=== PATIENT | female | born 1940 | race Hispanic/Latino ===

== ENCOUNTER 2021-09-10 11:52 | Emergency (ER) | payer OTHER ==
[~2021-09-10] VITALS: Ht 160 cm; Wt 73.5 kg
[2021-09-10] MEDS ORDERED: ONDANSETRON 4MG INJ IVP ONE (12:30)
[2021-09-10] MEDS ORDERED: KETOROLAC 15MG/ML VIAL (15MG/ML) IV ONE (12:30)
[2021-09-10] MEDS ORDERED: 0.9%NACL 1000ML 1,000 ML IV ONE (12:30)
[2021-09-10 12:43] LABS: BASOPHILS % (AUTO) 0.2 % (0.0-5.0); EOSINOPHILS % (AUTO) 0.4 % (0.0-8.0); HEMATOCRIT 39.4 % (36-48); LYMPHOCYTES % (AUTO) 2.4 % (21.0-51.0); MEAN CORPUSCULAR HEMOGLOBIN 29.7 pg (27.0-33.0); MEAN CORPUSCULAR HGB CONC 32.2 g/dL (32.0-36.0); MEAN CORPUSCULAR VOLUME 92.1 fL (79-99); MONOCYTES % (AUTO) 2.6 % (3.0-13.0); NEUTROPHILS % (AUTO) 93.9 % (40.0-77.0); PLATELET COUNT (AUTO) 294 K/uL (130-400); RED BLOOD CELL COUNT(AUTO) 4.28 MIL/uL (4.00-5.50); WHITE BLOOD COUNT (AUTO) 20.1 K/uL (4.8-10.8)
[2021-09-10 12:59] LABS: CREATININE 1.1 mg/dL (0.5-1.5); POTASSIUM 4.9 mmol/L (3.5-5.1)
[2021-09-10 13:04] LABS: ALBUMIN 3.6 g/dL (3.5-5.0); TOTAL PROTEIN, SERUM 7.4 g/dL (6.0-8.3)
[2021-09-10] MEDS ORDERED: IOHEXOL 350 MG/ML 100ML INFUS..BTL IV ONE (13:26)
[2021-09-10 13:50] LABS: APPEARANCE,URINE Clear (CLEAR); BILIRUBIN,URINE Negative (NEGATIVE); COLOR,URINE Yellow (YELLOW); GLUCOSE, URINE (UA) Negative (NEGATIVE); KETONES,URINE Negative (NEGATIVE); LEUKOCYTE ESTERASE ,URINE Trace (NEGATIVE); NITRATE,URINE Negative (NEGATIVE); OCCULT BLOOD,URINE Negative (NEGATIVE); PH,URINE 5.5 (5.0-8.0); PROTEIN,URINE Trace mg/dL (NEGATIVE); UROBILINOGEN,URINE 0.2 mg/dL (0.2-1.0)
[2021-09-10 14:01] LABS: BACTERIA,URINE None Seen /HPF (None Seen); RBC,URINE 0-1 /HPF (0-1); SQUAMOUS EPITHELIAL CELL,UR 0-2 /HPF (0-2); WBC,URINE 0-1 /HPF (0-1)
[2021-09-10] MEDS ORDERED: ONDA4TAB10 PO (16:23)
[2021-09-10] MEDS ORDERED: IBUP-2070 PO (16:23)
[2021-09-10] MEDS ORDERED: CEPH500B PO (16:23)
[2021-09-10 16:45] VITALS: BP 102/78
== END 2021-09-10 16:51 | disposition home or self-care (01) ==
LOC: EDH 11:52
DX: N39.0 Urinary tract infection, site not specified (principal); Z20.822 Contact with and (suspected) exposure to COVID-19; E11.9 Type 2 diabetes mellitus without complications; E78.00 Pure hypercholesterolemia, unspecified; I10 Essential (primary) hypertension; Z98.890 Other specified postprocedural states
CPT/HCPCS: 99285; 74177; 96374; 76705; 71045; 87635; 96375; 80053; 83690; 85025; 87804 ×2; 81001; 36415; C9803; J7030; J2405; J1885; Q9967

== ENCOUNTER 2024-04-07 06:49 | Emergency (ER) | payer OTHER ==
[~2024-04-07] VITALS: Ht 160 cm; Wt 71.7 kg
[~2024-04-07 06:49] MED LIST: CEPH500B PO; IBUP-2070 PO; ONDA-243 PO
--- NOTE | 2024-04-07 08:10 | ERN ---
ED Note History of Present Illness Stated Complaint: ABDOMINAL PAIN Chief Complaint: Abdominal Pain Time Seen by MD: 07:59 Dictation: The patient is a 83-year-old female patient with a medical history that includes hypertension, hypercholesterolemia, diverticulosis, chronic constipation, and type 2 diabetes mellitus presented to the emergency department today, reporting a primary complaint of sharp abdominal pain on the left side that has intensified since Thursday. The patient characterizes the pain as sharp and shooting, rated at 8 out of 10, with radiation to the back and no identifiable aggravating or alleviating factors. Two days prior, she consulted her primary care physician, who diagnosed her with a urinary tract infection and prescribed nitrofurantoin. However, her symptoms did not improve, leading her to visit urgent care yesterday, where she was advised that she might have pancreatitis and was discharged with pain relief medications. Despite this, her condition did not improve, prompting her visit to the emergency department. The patient has a history of diverticulitis diagnosed several years ago. She denies experiencing any chest pain, diaphoresis, shortness of breath, nausea, vomiting, urinary frequency, or urgency. Her last bowel movement was yesterday. Allergies: Coded Allergies: No Known Drug Allergies (Unverified Allergy, Unknown, 09/10/21) Home Meds Active Scripts Sennosides/Docusate Sodium (Sennosides-Docusate Sodium Tab) 8.6 Mg-50 Mg Tablet, 2 TAB PO DAILY for 7 Days, #14 TAB 0 Refills Prov:SENIA SOMERS MD 04/07/24 Cephalexin Monohydrate (Keflex) 500 Mg Cap, 500 MG PO BID for 5 Days, #10 CAP Prov:MARLENA REESE MD 09/10/21 Ondansetron (Ondansetron Odt) 4 Mg Tab.rapdis, 4 MG PO TID for nausea, #15 TAB Prov:MARLENA REESE MD 09/10/21 Ibuprofen (Ibuprofen) 600 Mg Tablet, 600 MG PO Q6H PRN for PAIN, #30 TAB Prov:MARLENA REESE MD 09/10/21 Past Medical History Past Medical History: Diabetes-Type II, Diverticulitis, High Cholesterol, Hypertension Additional Past Medical Hx: PVD, BOWEL OBSTRUCTION Surgical History: Hysterectomy Surgical History Other: HYSTERECTOMY 1990 Social History: Negative, Lives with family Review of System Dictation REVIEW OF SYSTEMS CONSTITUTIONAL: Denies fevers, chills, or night sweats. No unintentional weight loss reported. NEUROLOGICAL: Denies headache, amaurosis fugax, motor weakness, sensory deficit, vertigo/spinning sensation, gait abnormalities, or tremors. ENT: No hearing loss, otalgia, otorrhea, rhinitis, rhinorrhea, hoarseness, or sore throat. CARDIOVASCULAR: Denies any exertional angina, dyspnea on exertion, orthopnea, paroxysmal nocturnal dyspnea, palpitations, life-threatening arrhythmias, claudication. PULMONARY: Denies any shortness of breath, cough, phlegm/sputum, hemoptysis, pleuritic chest pain. SLEEP: Denies morning headaches, daytime somnolence or napping. Denies difficulty falling asleep, staying asleep, waking from sleep. Denies knowledge of snoring. GASTROINTESTINAL: c/o sharp shooting LUQ pain radiating to back, Denies any type of dysphagia to either liquids or solids. Denies pyrosis, early satiety, diarrhea, constipation, or changes in stool consistency or caliber. Denies coffee-ground emesis, hematemesis, hematochezia, or melanotic stools. GENITOURINARY: Denies frequency, urgency, nocturia, hematuria or incontinence (Storage/Irritative symptoms.) Low urinary stream, straining to void, urinary intermittency or hesitancy, splitting of the voiding stream, terminal dribbling. ENDOCRINOLOGIC: Denies polyuria, polydipsia, polyphagia or heat/cold intolerances. HEMATOLOGIC: Denies thrombophilia/previous clots, or coagulopathy/bleeding di sorders. ONCOLOGIC: Denies personal history of malignancy. DERMATOLOGIC: Denies rashes or pruritus. PSYCHIATRIC: Denies any suicidal or homicidal ideation. Denies hallucinations. Initial Vital Sign VS Vital Signs Date Time Temp Pulse Resp B/P (MAP) Pulse Ox O2 Delivery O2 Flow Rate FiO2 04/07/24 06:50 98.2 92 18 198/79 100 Room Air 0 04/07/24 08:57 21 Physical Exam Dictation PHYSICAL EXAM GENERAL APPEARANCE: The patient is awake, alert, and oriented, in no acute cardiopulmonary distress. NEUROLOGICAL: Cranial nerves II-XII grossly intact. Motor is 5/5 in bilateral upper and lower extremities proximal to distal. No sensory deficits. HEENT: Face is symmetric. Pupils are equal and reactive. Extraocular movements are intact. NECK: Supple. No JVD. No thyromegaly. No submental, submandibular, pre- /postauricular, occipital or supraclavicular lymphadenopathy. CHEST: Normal chest expansion. No Telemetry. LUNGS: Absence of any rales, rhonchi or any wheezing. CARDIOVASCULAR: Regular. S1 and S2 normal. No appreciable rubs, murmurs or gallops. ABDOMEN: Tenderness present on deep palpation on LUQ, Soft, and nondistended. There is no rebound, voluntary guarding, or rigidity. : Deferred. No Ye. EXTREMITIES: Non-edematous and not cyanotic. No clubbing. Good capillary refill. SKIN: No skin breakdown. Results (Laboratory/Radiology) Laboratory/Radiology Laboratory Tests Test 04/07/24 08:18 04/07/24 08:30 Urine Color COLORLESS (YELLOW) Urine Appearance CLEAR (CLEAR) Urine pH 7.0 (5.0-8.0) Urine Specific [place] 1.005 (1.001-1.031) Urine Protein NEGATIVE mg/dL (NEGATIVE) Urine Glucose (UA) NEGATIVE mg/dL (NEGATIVE) Urine Ketones NEGATIVE mg/dL (NEGATIVE) Urine Occult Blood NEGATIVE (NEGATIVE) Urine Nitrate NEGATIVE (NEGATIVE) Urine Bilirubin NEGATIVE mg/dL (NEGATIVE) Urine Urobilinogen 0.2 mg/dL (0.2-1.0) Urine Leukocyte Esterase NEGATIVE [place]/uL White Blood Count 7.7 K/uL (4.8-10.8) Red Blood Count 4.14 MIL/uL (4.00-5.50) Hemoglobin 12.3 g/dL (12.0-16.0) Hematocrit 38.3 % (36-48) Mean Corpuscular Volume 92.5 fL (79-99) Mean Corpuscular Hemoglobin 29.7 pg (27.0-33.0) Mean Corpuscular Hemoglobin Concent 32.1 g/dL (32.0-36.0) Red Cell Distribution Width 13.5 % (11.0-15.5) Platelet Count 194 K/uL (130-400) Mean Platelet Volume 10.0 fL (7.5-10.5) Immature Granulocyte % (Auto) 0.4 % (0-1) Neutrophils (%) (Auto) 68.5 % (40.0-77.0) Lymphocytes (%) (Auto) 18.9 % (21.0-51.0) L Monocytes (%) (Auto) 9.9 % (3.0-13.0) Eosinophils (%) (Auto) 1.8 % (0.0-8.0) Basophils (%) (Auto) 0.5 % (0.0-5.0) Neutrophils # (Auto) 5.3 K/uL (1.8-7.7) Lymphocytes # (Auto) 1.5 K/uL (1.0-4.8) Monocytes # (Auto) 0.8 K/uL (0.1-1.0) Eosinophils # (Auto) 0.14 K/uL (0.00-0.70) Basophils # (Auto) 0.04 K/uL (0.00-0.20) Absolute Immature Granulocyte (auto 0.03 K/uL (0-1) Nucleated Red Blood Cells 0.0 % (0.0-0.19) Sodium Level 144 mmol/L (136-145) Potassium Level 4.6 mmol/L (3.5-5.1) Chloride Level 110 mmol/L (101-111) Carbon Dioxide Level 27 mmol/L (21-32) Blood Urea Nitrogen 11 mg/dL (7-18) Creatinine 0.9 mg/dL (0.5-1.0) Glomerular Filtration Rate Calc 64 mL/min (>90) Random Glucose 122 mg/dL (70-105) H Total Calcium 9.3 mg/dL (8.5-10.1) Total Bilirubin 0.3 mg/dL (0.2-1.0) Direct Bilirubin 0.1 mg/dL (0.0-0.3) Aspartate Amino Transf (AST/SGOT) 17 U/L (10-37) Alanine Aminotransferase (ALT/SGPT) 29 U/L (12-78) Alkaline Phosphatase 73 U/L (50-136) Total Protein 7.3 g/dL (6.0-8.3) Albumin 3.6 g/dL (3.5-5.0) Lipase 70 U/L (16-77) CT Scan Comment: [place] [id number] [address] IMAGING REPORT Signed PATIENT: JAYSON BROOKS MR#: [id number] : 1940 SEX: F AGE: 83 LOCATION: [facility] ORDER 0 STATUS: REG ER REPORT#: [id number] SERVICE 8 REASON: LUQ pain, R/o diverticulitis, Pancreatitis ORDERING PHYSICIAN: SENIA SOMERS MD PROCEDURE: ABD PEL WO - CT ABDOMEN/PELVIS W/O CONTRAST CT ABDOMEN/PELVIS W/O CONTRAST HISTORY: Pain COMPARISON: None TECHNIQUE: Multiple sequential axial images of the abdomen and pelvis were obtained from the dome of the diaphragm through symphysis pubis. Patient was not given contrast through intravenous route. Oral contrast was not given. FINDINGS: No pleural effusion is seen bilaterally. There is no evidence of parenchymal disease or pulmonary nodule of the visualized lower lungs. Degenerative changes of the thoracolumbar spine are present. The heart is not enlarged. Liver measures 14 cm. Gallbladder is markedly distended with gallstone. There is diverticulosis. The liver, spleen, adrenal glands and pancreas are unremarkable. There is no evidence of hydronephrosis bilaterally. No evidence of renal stone is seen. Fecal material is seen in the colon. There are normal size retroperitoneal and mesenteric lymph nodes. No ascites is seen. Atherosclerotic changes are present. Appendix is not well seen. Pelvic sidewalls are symmetric bilaterally. Bladder is poorly distended. IMPRESSION: 1. Gallbladder is markedly distended with gallstone. There is diverticulosis. CT was performed with one or more following dose reduction techniques: automated exposure control, adjustment of the mA and kv according to patient's size, or use of a iterative reconstruction technique. DICTATED BY: MARCO ANTONIO CARDONA MD DATE: 04/07/2457 ELECTRONICALLY SIGNED BY: MARCO ANTONIO CARDONA MD DATE: 04/07/24900 ED Course ED Course Orders Procedure Category Date Status Time Cbc With Differential LAB 04/07/24 Complete 06:54 Urinalysis Profile LAB 04/07/24 Complete 06:54 Morphine 2mg Syg PHA 04/07/24 Complete (Morphine 2mg Syg) 07:00 Ondansetron 4mg Inj PHA 04/07/24 Complete (Zofran 4mg Inj) 07:00 Lipase LAB 04/07/24 Complete 06:54 Basic Metabolic Panel LAB 04/07/24 Complete 06:54 Ct Abdomen/Pelvis W/O CT 04/07/24 Resulted Contrast 07:59 Vital Signs Per CPOE 04/07/24 Transmitted Routine 08:51 Hepatic Function Panel LAB 04/07/24 Complete 09:03 Pantoprazole 40mg Inj PHA 04/07/24 Complete (Protonix 40mg Inj 09:30 Lidocaine Hcl 2% PHA 04/07/24 Complete Viscous (Lidocaine Hcl 09:30 Mag/Alum/Simeth 30ml PHA 04/07/24 Complete (Maalox Plus 30ml) 09:30 Dicyclomine Hcl PHA 04/07/24 Complete (Bentyl 10mg/5ml 09:30 Current Medications Medications (Trade) Dose Ordered Sig/Brandy Route PRN Reason Start Time Stop Time Status Last Admin Dose Admin Al Hydroxide/Mg Hydroxide (MAALox PLUS 30ML) 30 ml ONCE ONCE PO 04/07/24 09:30 04/07/24 09:31 DC 04/07/24 09:38 Dicyclomine HCl (Bentyl 10mg/5ml Syrup) 10 mg ONCE ONCE PO 04/07/24 09:30 04/07/24 09:31 DC 04/07/24 09:38 Lidocaine HCl (Lidocaine HCl 2% Viscous) 10 ml ONCE ONCE PO 04/07/24 09:30 04/07/24 09:31 DC 04/07/24 09:38 Morphine Sulfate (morPHINE 2MG SYG) 2 mg ONCE ONCE IVP 04/07/24 07:00 04/07/24 07:01 DC 04/07/24 08:54 Ondansetron HCl (zoFRAN 4MG INJ) 4 mg ONCE ONCE IVP 04/07/24 07:00 04/07/24 07:01 DC 04/07/24 08:44 Pantoprazole Sodium (PROTonix 40MG INJ) 40 mg ONCE ONCE IVP 04/07/24 09:30 04/07/24 09:31 DC 04/07/24 09:37 Vital Signs Date Time Temp Pulse Resp B/P (MAP) Pulse Ox O2 Delivery O2 Flow Rate FiO2 04/07/24 10:39 97.5 67 18 159/72 100 Room Air* 0 21 04/07/24 08:57 98.1 64 16 152/84 98 Room Air* 0 21 04/07/24 06:50 98.2 92 18 198/79 100 Room Air 0 08:13 The patient was assessed in Emergency Department triage room 2. She is a Welsh speaker, and her daughter assisted with the translation. The patient reports experiencing pain but does not appear to be in cardiopulmonary distress. She is exhibiting hypertension, likely due to pain, with a reading of 198/79, but is otherwise hemodynamically stable. We will proceed with ordering basic laboratory tests, including CBC, BMP, amylase, and urinalysis. Additionally, a CT scan of the abdomen and pelvis without contrast will be requested to exclude nephrolithiasis, diverticulitis, pyelonephritis, and pancreatitis. Once the results of the investigations and laboratory tests are available, we will determine whether the patient requires any emergency interventions or inpatient admission. Continuous monitoring of the patient will be conducted. 10:42 laboratory results did not show any abnormalities. CT scan abdomen and pelvis showed gallbladder is markedly distended with gallstones, and diverticulosis. At this time, we think the patient does not require any emergency treatment or inpatient hospitalization. The patient's symptoms are likely secondary to constipation, diverticulosis. We will prescribe laxatives to relieve with the constipation. Lab results and investigations were discussed with the patient and her daughter. The patient is stable for discharge. Medical Decision Making [facility] Differential diagnosis: Diverticulosis of colon, Constipation, Left upper quadrant abdominal pain Rationale: Tests considered and ordered secondary to shared decision making include: Previous outside records reviewed: Old ER visits. Risk of complication and/or morbidity or mortality of patient management: None Medications-Per medication reconciliation Need for hospitalization: Patient does not meet criteria for hospitalization. Need for emergency major/minor surgery: No There are no social concerns with this patient. Prescription drug management Prescriptions will include symptomatic care Patient's prior external medical records from other ER visits were reviewed by me as indicated. Prior testing and results from previous visits were reviewed. Prior tests were taken into account with medical decision making and resource utilization, independent historian/historians were used to obtain complete medical history. I independently interpreted the test that were performed, results were reviewed by me and considered findings on radiology if ordered. DX & DISP Disposition: Discharge Departure Impression: Primary Impression: Diverticulosis of colon Additional Impressions: Left upper quadrant abdominal pain, Constipation Critical Time: 30 minutes Condition: Stable Scripts Sennosides/Docusate Sodium (Sennosides-Docusate Sodium Tab) 8.6 Mg-50 Mg Tablet 2 TAB PO DAILY for 7 Days, #14 TAB 0 Refills Prov: SENAI SOMERS MD 04/07/24 Additional Instructions: Start taking sennosides/Docusate sodium 8.6-50 mg 2 tablets daily as needed for constipation. Gradually increase the amount of high-fiber foods in your diet. Choose more whole grain breads, cereals and rice. Select more raw fruits and vegetables -- eat the peel, if appropriate. Read food labels and look for the "dietary fiber" content of foods. Drink clear fluids like water, tea, broth, Gatorade, or Jell-O Avoid fried or spicy foods, or foods that are high in fat Visit the nearest emergency department or call 911 should the symptoms does not improve or gets worse. Referrals: YULISSA BROOKS MD (PCP) I have reviewed, & agreed with my scribe's, documentation. I have reviewed the case, and I agree with, Diagnosis and Plan I have examined patient, & reviewed all documents, & agreed W/ the Diagnosis, and Plan SENIA SOMERS MD Apr 07, 2024 08:10
[2024-04-07 08:41] LABS: BASOPHILS # (AUTO) 0.04 K/uL (0.00-0.20); BASOPHILS % (AUTO) 0.5 % (0.0-5.0); EOSINOPHILS # (AUTO) 0.14 K/uL (0.00-0.70); EOSINOPHILS % (AUTO) 1.8 % (0.0-8.0); HEMATOCRIT 38.3 % (36-48); IMMATURE GRANULOCYTE ABSOLUTE 0.03 K/uL (0-1); LYMPHOCYTES # (AUTO) 1.5 K/uL (1.0-4.8); LYMPHOCYTES % (AUTO) 18.9 % (21.0-51.0); MEAN CORPUSCULAR HEMOGLOBIN 29.7 pg (27.0-33.0); MEAN CORPUSCULAR HGB CONC 32.1 g/dL (32.0-36.0); MEAN CORPUSCULAR VOLUME 92.5 fL (79-99); MONOCYTES # (AUTO) 0.8 K/uL (0.1-1.0); MONOCYTES % (AUTO) 9.9 % (3.0-13.0); NEUTROPHILS # (AUTO) 5.3 K/uL (1.8-7.7); NEUTROPHILS % (AUTO) 68.5 % (40.0-77.0); PLATELET COUNT (AUTO) 194 K/uL (130-400); RED BLOOD CELL COUNT(AUTO) 4.14 MIL/uL (4.00-5.50); RED CELL DISTRIBUTION WIDTH 13.5 % (11.0-15.5); WHITE BLOOD COUNT (AUTO) 7.7 K/uL (4.8-10.8)
[2024-04-07] MEDS: ondanSETRON 4MG INJ IVP ONE (08:44)
[2024-04-07 08:47] LABS: ADD UA MICROSCOPIC NO; APPEARANCE,URINE CLEAR (CLEAR); BILIRUBIN,URINE NEGATIVE (NEGATIVE); COLOR,URINE COLORLESS (YELLOW); GLUCOSE, URINE (UA) NEGATIVE (NEGATIVE); KETONES,URINE NEGATIVE (NEGATIVE); LEUKOCYTE ESTERASE ,URINE NEGATIVE Leu/uL (NEGATIVE); NITRATE,URINE NEGATIVE (NEGATIVE); OCCULT BLOOD,URINE NEGATIVE (NEGATIVE); PROTEIN,URINE NEGATIVE (NEGATIVE); UROBILINOGEN,URINE 0.2 mg/dL (0.2-1.0)
[2024-04-07 08:50] LABS: CREATININE 0.9 mg/dL (0.5-1.0); POTASSIUM 4.6 mmol/L (3.5-5.1)
[2024-04-07] MEDS: morPHINE 2 MG SYG IVP ONE (08:54)
--- NOTE | 2024-04-07 09:01 | HMCIMG ---
CT ABDOMEN/PELVIS W/O CONTRAST HISTORY: Pain COMPARISON: None TECHNIQUE: Multiple sequential axial images of the abdomen and pelvis were obtained from the dome of the diaphragm through symphysis pubis. Patient was not given contrast through intravenous route. Oral contrast was not given. FINDINGS: No pleural effusion is seen bilaterally. There is no evidence of parenchymal disease or pulmonary nodule of the visualized lower lungs. Degenerative changes of the thoracolumbar spine are present. The heart is not enlarged. Liver measures 14 cm. Gallbladder is markedly distended with gallstone. There is diverticulosis. The liver, spleen, adrenal glands and pancreas are unremarkable. There is no evidence of hydronephrosis bilaterally. No evidence of renal stone is seen. Fecal material is seen in the colon. There are normal size retroperitoneal and mesenteric lymph nodes. No ascites is seen. Atherosclerotic changes are present. Appendix is not well seen. Pelvic sidewalls are symmetric bilaterally. Bladder is poorly distended. IMPRESSION: 1. Gallbladder is markedly distended with gallstone. There is diverticulosis. CT was performed with one or more following dose reduction techniques: automated exposure control, adjustment of the mA and kv according to patient's size, or use of a iterative reconstruction technique.
[2024-04-07] MEDS: PANTOPrazole 40 MG/VIAL IVP ONE (09:37)
[2024-04-07] MEDS: DICYCLOMINE HCL 10 MG/5 ML ML PO ONE (09:38)
[2024-04-07] MEDS: MAG/ALUM/SIMETH 30 ML UDCUP PO ONE (09:38)
[2024-04-07] MEDS: LIDOCAINE HCL 2% VISCOUS 15 ML UDCUP PO ONE (09:38)
[2024-04-07 10:20] LABS: ALBUMIN 3.6 g/dL (3.5-5.0); BILIRUBIN,DIRECT 0.1 mg/dL (0.0-0.3); BILIRUBIN,TOTAL 0.3 mg/dL (0.2-1.0); TOTAL PROTEIN, SERUM 7.3 g/dL (6.0-8.3)
[2024-04-07] MEDS ORDERED: SENN-31 PO (10:23)
[2024-04-07 10:39] VITALS: BP 159/72; PULSE 67; RESP 18; TEMP 97.6; O2SAT 100
== END 2024-04-07 10:50 | disposition home or self-care (01) ==
LOC: EDH 06:49
DX: K57.30 Diverticulosis of large intestine without perforation or abscess without bleeding (principal); K59.00 Constipation, unspecified; E11.51 Type 2 diabetes mellitus with diabetic peripheral angiopathy without gangrene; E78.00 Pure hypercholesterolemia, unspecified; I10 Essential (primary) hypertension; Z90.710 Acquired absence of both cervix and uterus; Z79.899 Other long term (current) drug therapy
CPT/HCPCS: 99285; 74176; 96374; 96375; 80076; 80048; 83690; 85025; 81003; 36415; J2270; J2405; J2470